=== PATIENT | male | born 1975 | race Caucasian/White ===

== ENCOUNTER 2024-07-21 11:59 | Outpatient (OUT) | payer BC, SELFPAY ==
--- NOTE | 2024-07-21 12:08 | XR_ITS ---
The [address] [address] Patient Name: NAVNEET CUNHA MRN: [id number] date: 1975 Sex: M Assigned Patient Location: [facility] Current Patient Location: Accession/Order Number: [id number] Exam Date: 07/21/2024 12:18 Report Date: 07/23/2024 04:30 At the request of: SHIRIN ESPINOZA Procedure: XR lumbar spine 6V w bending EXAMINATION: XR lumbar spine 6V w bending HISTORY: Low Back Pain COMPARISON: No relevant comparison available. FINDINGS: BONES: Mild right convex curvature lumbar spine. Minimal anterior wedging of T11 and T12 vertebral bodies. Height and alignment of the lumbar vertebral bodies. Moderate degenerative facet arthropathy L3-L4 through L5-S1. DISC SPACES: Moderate-marked narrowing L5-S1. PARASPINOUS: Negative. No paraspinous abnormality is seen. OTHER: Negative. XR/XR lumbar spine 6V w bending IMPRESSION: 1. L5-S1 moderate-marked degenerative disc disease and multilevel moderate degenerative facet arthropathy. 2. Degenerative endplate changes versus remote mild compression fractures of T11 and T12. Electronically authenticated by: ELVIN MILIAN Date: 07/23/2024 04:30
== END 2024-07-21 12:00 | disposition home or self-care (01) ==
LOC: RAD 12:02
PROVIDERS: PCP Internal Medicine; Visit Provider Internal Medicine
DX: M54.50 Low back pain, unspecified (principal); M51.36 Other intervertebral disc degeneration, lumbar region
CPT/HCPCS: 72114

== ENCOUNTER 2024-07-28 12:50 | Outpatient (RCR) | payer BC, SELFPAY | END 2024-09-16 09:31 | disposition home or self-care (01) | LOC: PT 12:50 | PROVIDERS: PCP Internal Medicine; Visit Provider Internal Medicine | DX: M54.50 Low back pain, unspecified (principal) | CPT/HCPCS: 97010; 97012; 97014; 97110; 97112; 97140; 97162; 97164 ==

== ENCOUNTER 2025-01-11 10:38 | Emergency (ER) | payer BC, SELFPAY ==
[2025-01-11 10:41] VITALS: BP 146/97; PULSE 68; TEMP 37.1; O2SAT 99; BMI 42.2
--- NOTE | 2025-01-11 11:01 | ED_ITS ---
HPI HPI - General Adult General Chief complaint: Back Pain/Injury Stated complaint: WEAKNESS Time Seen by Provider: 01/11/25 10:59 Source: patient Mode of arrival: ambulance Limitations: no limitations History of Present Illness HPI narrative: Patient is a 49-year-old male who is presenting to the ER today by EMS secondary to left flank and left lower back pain. Patient is coming from work. Patient is also been having nausea, vomiting, diarrhea since Friday. Patient does not believe that he has urinated since Friday. If patient is urinating is not being attention or going a little bit. Patient has history of kidney stones, he is passed for kidney stones in the past. Patient last kidney stone was passed approximately 8 years ago. Patient has not been urinating much. Patient had nausea vomiting diarrhea. Patient was at work today. Patient has no anterior abdominal pain. No chest pain or shortness of breath. No headache. Patient is clammy not diaphoretic. All systems are negative except as noted/marked. All systems reviewed and otherwise negative. Nurses note and vital signs reviewed and patient is not hypoxic. General: The patient appears well and in no apparent distress. Patient is resting comfortably on cart. Patient is not toxic, lethargic, or listless Skin: Warm, clammy, not diaphoretic, no pallor noted. There is no rash noted. No petechiae, purpura. Head: Normocephalic, atraumatic Eye: Normal conjunctiva, no drainage, EOMI. PERRL Ears, Nose, Mouth, and Throat: oral mucosa is moist. Nares patent. Mouth without vesicles. Cardiovascular: Regular Rate and Rhythm, no murmur, gallop, rub Respiratory: Patient is in no distress, no accessory muscle use, lungs are clear to auscultation, no wheezing, rales or rhonchi Back: Patient has moderate tenderness palpation to left CVA, moderate tenderness palpation to left flank, no tenderness to palpation to the right flank, mild tenderness to palpation to left lower quadrant, otherwise the rest of his back is non-tender, no CVA tenderness on the right to percussion. No CT LS midline pain GI: Obese, no midepigastric tenderness palpation. No peritoneal signs. Mild left lower quadrant tenderness palpation. Otherwise No tenderness to palpation, no masses appreciated. No rebound, guarding, or rigidity noted. No distention. No rigidity, no tympany. : Patient is circumcised, no tenderness to palpation to bilateral testicles. No signs of hernia. Musculoskeletal: Patient has full range of motion of all of the extremities, no motor, sensory, or focal neurological deficits Neurological: A&O x4, normal speech Psychiatric: Cooperative Related Data Previous Rx's ?Medication ?Instructions ?Recorded hydrocodone 5 mg-acetaminophen 325 1 tab PO Q4H PRN pain #10 tabs 01/11/25 mg tablet ketorolac 10 mg tablet 10 mg PO Q8H PRN pain 1 day #10 01/11/25 tabs ondansetron 4 mg disintegrating 4 mg PO Q4H PRN nausea and 01/11/25 tablet vomiting 3 days #6 tabs tamsulosin 0.4 mg capsule (Flomax) 0.4 mg PO DAILY 7 days #7 caps 01/11/25 Allergies Allergy/AdvReac Type Severity Reaction Status Date / Time No Known Drug Allergies Allergy Verified 01/11/25 10:44 Opioid HPI Opioid Management Most Recent Opioid Data: Last Pain Scale 6 01/11/25 14:26 01/11/25 Last MAR Pain Assessment 01/11/25 14:26 PFSH PFSH Social History Little interest or pleasure in doing things: not at all Feeling down, depressed, or hopeless: not at all Exam Constitutional Vital Signs, click to edit/add: Last Vital Signs Temp 98.7 F 01/11/25 10:41 Pulse 68 01/11/25 15:58 Resp 20 01/11/25 15:58 BP 160/100 H 01/11/25 15:58 Pulse Ox 98 01/11/25 15:58 O2 Del Method Room Air 01/11/25 15:58 Course Vital Signs Vital signs: Vital Signs Temperature 98.7 F 01/11/25 10:41 Pulse Rate 68 01/11/25 10:41 Respiratory Rate 20 01/11/25 10:41 Blood Pressure 146/97 H 01/11/25 10:41 Pulse Oximetry 99 01/11/25 10:41 Oxygen Delivery Method Room Air 01/11/25 10:41 Temperature 98.7 F 01/11/25 10:41 Pulse Rate 68 01/11/25 15:58 Respiratory Rate 20 01/11/25 15:58 Blood Pressure 160/100 H 01/11/25 15:58 Pulse Oximetry 98 01/11/25 15:58 Oxygen Delivery Method Room Air 01/11/25 15:58 Medical Decision Making MDM Narrative Medical decision making narrative: Patient presented from work by EMS. Patient has a history of kidney stones, last kidney stone he passed was approximately [address] shows 1 mm stone to the distal left ureter, mild hydronephrosis and hydroureter. Patient was given 4 mg of Zofran and Toradol by EMS. 1400 Lab work shows no significant findings, still waiting for urine sample. 1510 patient had Vasquez catheter placed because has been given 2 L of IV fluid and is unable to produce urine. Initial bladder scan showed around 150 cc of urine. Patient is not having significant amount of urine or bladder pressure. Patient had a Vasquez catheter placed, we obtained approximately 200 cc of fluid. Vasquez catheter was removed. There was a concern patient may be having urinary retention, he is not. BUN is slightly elevated at 19. Urine was sent. CK was added. Patient has a 1 mm stone that is at the distal left ureter. Patient has been having intermittent pain and nausea in the ER, has been though several times for nausea and pain. Patient was given a copy of his CT report. Patient does not have a urologist. 1600 patient blood pressure was elevated at discharge. Education was done at bedside on elevated blood pressure, risks of cardiovascular disease if patient continues to have blood pressure greater than 130/80. Also discussing patient's noncompliant elevated blood sugars and not taking metformin. Patient does see Dr. Quinonez. Patient has no significant headache, chest pain, shortness of breath. Education and creating a blood pressure log was discussed at bedside as well, taking his blood pressure twice a day for the next 1 to 2 weeks, recording the blood pressure and times, and presenting them to Dr. Quinonez for further testing and evaluation. Patient understands this, no question at discharge. I took patient's Vasquez catheter out. I removed 10 cc of fluid, and I pulled out the Vasquez catheter with no complications. No bleeding occurred. Patient tolerated procedure well without difficulty. Patient was given 2 L of IV fluid for resuscitation. Vasquez catheter was placed. Multiple bedside visits made to reassess his pain, multiple different doses of nausea pain medication given. 10-minute discussion on medical compliance, taking diabetic medication, paying attention to his blood pressure, and education on cardiovascular risk and disease if he continues noncompliance, especially noncompliance with diabetes. Mother was a witness to these conversations as well. Critical care time 31 minutes exclusive from separate billable procedures that were performed. The following was considered in the determination of critical care but not limited to the level of medical decision making, intensive cardiac and/or respiratory monitoring, frequent vital sign monitoring, evaluation of laboratory studies, evaluation of radiographic studies, oxygen monitoring, and constant monitoring and speaking to family at bedside Lab Data Labs: Lab Results 01/11/25 01/11/25 Range/Units 11:08 15:10 WBC 8.3 (4.0-11.0) 10^3/uL RBC 4.99 (4.70-6.10) 10^6/uL Hgb 15.1 (14.0-18.0) g/dL Hct 43.7 (42.0-54.0) % MCV 87.6 (80.0-94.0) fL MCH 30.3 (25.9-34.0) pg MCHC 34.6 (29.9-35.2) g/dL RDW 12.3 (11.0-15.0) % Plt Count 189 (150-450) 10^3/uL MPV 10.3 (9.5-13.5) fL Neut % (Auto) 73.6 (43.0-75.0) % Lymph % (Auto) 17.3 L (20.5-60.0) % [place] % (Auto) 7.3 (1.7-12.0) % Eos % (Auto) 1.0 (0.9-7.0) % Baso % (Auto) 0.4 (0.2-2.0) % Neut # (Auto) 6.1 (1.4-6.5) 10^3/uL Lymph # (Auto) 1.4 (1.2-3.8) 10^3/uL [place] # (Auto) 0.6 (0.3-0.8) 10^3/uL Eos # (Auto) 0.1 (0.0-0.7) 10^3/uL Baso # (Auto) 0.0 (0.0-0.1) 10^3/uL Abs Immat Gran (auto) 0.03 (0.00-0.03) 10^3/uL Imm/Tot Granulo (auto) 0.4 (0.0-0.5) % Sodium 138 (136-145) mmol/L Potassium 4.3 (3.5-5.1) mmol/L Chloride 104 (98-107) mmol/L Carbon Dioxide 26.1 (21.0-32.0) mmol/L Anion Gap 12.2 BUN 19.0 H (7.0-18.0) mg/dL Creatinine 1.17 (0.70-1.30) mg/dL Est GFR ( Amer) >60 (>=60 mL/min/1.73m^2) Est GFR (Non-Af Amer) >60 (>=60 mL/min/1.73m^2) BUN/Creatinine Ratio 16.2 Glucose 245 H (74-106) mg/dL Calcium 9.0 (8.5-10.1) mg/dL Total Bilirubin 0.7 (0.2-1.0) mg/dL AST 23 (15-37) U/L ALT 48 (16-63) U/L Alkaline Phosphatase 103 (46-116) U/L Total Creatine Kinase 148 (39-308) U/L Total Protein 6.5 (6.4-8.2) g/dL Albumin 3.8 (3.4-5.0) g/dL Globulin 2.7 g/dL Albumin/Globulin Ratio 1.4 Lipase 24.0 (16.0-77.0) U/L Urine Color Yellow (YELLOW) Urine Clarity Clear (CLEAR) Urine pH 5.0 (5.0-9.0) Ur Specific [place] >=1.030 A (1.005-1.025) Urine Protein Trace (NEG/TRACE) mg/dL Urine Glucose (UA) 500 A (NEGATIVE) mg/dL Urine Ketones Trace A (NEGATIVE) mg/dL Urine Occult Blood Moderate A (NEGATIVE) Urine Nitrite Negative (NEGATIVE) Urine Bilirubin Negative (NEGATIVE) Urine Urobilinogen 1.0 (0.2-1.0) EU/dL Ur Leukocyte Esterase Negative (NEGATIVE) Urine RBC 5-10 A (0-2) #/HPF Urine WBC 0-2 A (NONE SEEN) #/HPF Ur Squamous Epith Cells Few A (NONE/RARE) #/LPF Urine Crystals None seen (None Seen) #/HPF Urine Bacteria Trace A (NONE SEEN) #/HPF Urine Casts None seen (NONE SEEN) #/LPF Urine Mucus Moderate A (NONE SEEN) Ur Culture Indicated? No Discharge Plan Discharge Stand Alone Forms: Work/School Release Chief Complaint: Back Pain/Injury Clinical Impression: Kidney stone on left side, Medical non-compliance, Diabetes Patient Disposition: Home, Self-Care Time of Disposition Decision: 15:22 Condition: Fair Prescriptions / Home Meds: New hydrocodone-acetaminophen 5-325 mg tablet 1 tab PO Q4H PRN (Reason: pain) Qty: 10 0RF ketorolac 10 mg tablet 10 mg PO Q8H PRN (Reason: pain) 1 Days Qty: 10 0RF tamsulosin [Flomax] 0.4 mg capsule 0.4 mg PO DAILY 7 Days Qty: 7 0RF ondansetron 4 mg tablet,disintegrating 4 mg PO Q4H PRN (Reason: nausea and vomiting) 3 Days Qty: 6 0RF Print Language: Colombian Instructions: Kidney Stones (ED), Renal Colic (ED), How to Strain Your Urine (ED), Hydronephrosis (ED), Type 2 Diabetes in the Older Adult (ED) Additional Instructions: Go to the pharmacy and pick pack worker your metformin prescription and start taking metformin as prescribed. Follow-up with your PCP to check your hemoglobin A1c's as you should, and continue to follow compliance with diabetes or you will have adverse complications in the future as discussed. Increase fluids, 0.5 - 1 gallon of water a day to help flush fluids and help with hydration. Also Gatorade or Powerade could help as well. Use medication as needed to help with pain. Use the urine strainer every time that you urinate. Follow-up with urology, Dr. Hall Follow-up with Dr. Quinonez as needed as well. Nausea medication has been prescribed. Use as needed. Take Flomax daily After 2 L of IV fluid, you only had approximately 1 Pop (200ml) can Of urine in your bladder, continue to hydrate and increase fluids. Return back to the ER if you are having intractable pain, nausea vomiting, or any other acute complaints. Referrals: Johnny Quinonez DO [Primary Care Provider] - 1 week Jones Hall MD [Physician] - 1 week Discharge Date/Time: 01/11/25 16:00
--- OUTSIDE RECORDS SUMMARY | 2025-01-11 11:08 | XMS_ITS | CCD ---
Author Organization [facility] Care Team Providers Care Tube Washer Name Role Phone Rezaee, Vonnie Unavailable Unavailable Johnny Quinonez Unavailable Unavailable Rezaee, Vonnie P Unavailable Unavailable Rezaee, Vonnie Unavailable Unavailable Freddy Encarnacion Unavailable DO Johnny Quinonez Primary Care Provider [phone] MD Freddy Encarnacion Attending Provider FREDDY ENCARNACION Admitting Unavailable FREDDY ENCARNACION Attending Unavailable CRISTIANO, DR CARPIO Primary Care Unavailable SALLY MEEKS Admitting Unavailable SALLY MEEKS Attending Unavailable CRISTIANO, DR CARPIO Primary Care Unavailable PIERMONT, DR RADHA Cardona Consulting Unavailable SALLY MEEKS Consulting Unavailable Freddy Encarnacion Attending Johnny Serna Primary Care Unavailable Freddy Enacrnacion Admitting Unavailable Freddy Encarnacion Attending Unavailable Johnny Quinonez Primary Care Unavailable Freddy Encarnacion Admitting Unavailable MERRICK DIAL Attending Unavailable Johnny Quinonez MD Primary Care Provider Trung Ellington DO Unavailable [phone] Allergies Allergy Classification Reported Allergen(s) Allergy Type Date of Onset Reaction(s) Facility (4 sources) Coconut extract; Translations: [coconut] Drug Allergy 9 Unknown Reaction [facility] (4 sources) Grass pollen; Translations: [grass pollen] Propensity to adverse reactions 9 Unknown Reaction [facility] (4 sources) Loratadine; Translations: [loratadine] Drug Allergy 9 Unknown Reaction [facility] (4 sources) Ragweed pollen; Translations: [ragweed pollen] Propensity to adverse reactions 9 Unknown Reaction [facility] Medications Current Medications Medication Drug Class(es) Dates Sig (Normalized) Sig (Original) etodolac 500 mg oral tablet (2 sources) Nonsteroidal Anti-inflammatory Drug Start: 07-21-2024 take 500 mg by mouth twice daily Etodolac Active 500 MG PO Twice daily 30 July 21, 2024 12:00am insulin detemir 100 unt/ml injectable solution (6 sources) Insulin Analog Levemir 100 UNIT/ML as directed Subcutaneous Active lisinopril 20 mg oral tablet (7 sources) Angiotensin Converting Enzyme Inhibitor Start: 07-21-2024 lisinopril 20 MG tablet Daily 07/21/2024 Active Start: 04-22-2018 End: 03-11-2019 take 10 mg by mouth once daily Lisinopril Discontinued 10 MG PO Daily April 22, 2018 12:00am March 11, 2019 8:21am metFORMIN hydrochloride 850 mg oral tablet (20 sources) Biguanide Start: 07-21-2024 take 850 mg by mouth once daily Metformin Active 850 MG PO Daily July 21, 2024 12:00am Start: 03-11-2019 End: 07-21-2024 take 500 mg by mouth twice daily Metformin Discontinued 500 MG PO Twice daily March 11, 2019 12:00am July 21, 2024 10:47am metFORMIN (Gluco phage) 1000 MG tablet 1 (one) time each day at the same time Active take 1 tablet by sarah th once daily metFORMIN HCl 500 MG 1 tablet with a meal Orally Once a day for 30 day(s) Active 0.25 mg, 0.5 mg dose 1.5 ml semaglutide 1.34 mg/ml pen injector (7 sources) Ozempic (0.25 or 0.5 MG/DOSE) 2 MG/1.5ML as directed Subcutaneous Active Ozempic (0.25 or 0.5 MG/DOSE) 2 MG/1.5ML Subcutaneous Solution Pen-injector Refills: 0 DO Active tiZANidine 4 mg oral tablet (8 sources) Central alpha-2 Adrenergic Agonist Start: 07-21-2024 tiZANidine (Zanaflex ) 4 MG tablet Daily at bedtime 07/21/2024 Active Start: 04-22-2018 End: 03-11-2019 take 6 mg by mouth three times daily Tizanidine Discontinued 6 MG PO Three times daily April 22, 2018 12:00am March 11, 2019 8:22am Start: 02-24-2018 tiZANidine HCl - 4 MG Oral Tablet Quantity: 60 Refills: 0 Start : 24-Feb-2018 Active Completed/Discontinued Medications Medication Drug Class(es) Dates Sig (Normalized) Sig (Original) [id number] 200 actuat albuterol 0.09 mg/actuat metered dose inhaler (2 sources) beta2-Adrenergic Agonist Start: 07-28-2023 End: 09-27-2024 take 2 puff(s) by inhalation every four hours for wheezing albuterol HFA (ProAir HFA) 90 mcg/act inhaler Indications: Acute non-recurrent maxillary sinusitis Inhale 2 puffs every 4 (four) hours if needed for shortness of breath or wheezing. 8.5 g 07/28/2023 09/27/2024 Discontinued amLODIPine 10 mg oral tablet (9 sources) Dihydropyridine Calcium Channel Scott Start: 03-11-2019 End: 07-21-2024 take 10 mg by mouth once daily Amlodipine Discontinued 10 MG PO Daily March 11, 2019 12:00am July 21, 2024 10:46am aspirin 81 mg chewable tablet (9 sources) Platelet Aggregation Inhibitor, Nonsteroidal Anti-inflammatory Drug Start: 03-11-2019 End: 07-21-2024 take 81 mg by mouth once daily Aspirin Discontinued 81 MG PO Daily March 11, 2019 12:00am July 21, 2024 10:46am atorvastatin 10 mg oral tablet (9 sources) HMG-CoA Reductase Inhibitor Start: 03-11-2019 End: 07-21-2024 take 10 mg by mouth once daily Atorvastatin Discontinued 10 MG PO Daily March 11, 2019 12:00am July 21, 2024 10:46am cyclobenzaprine hydrochloride 5 mg oral tablet (1 source) Muscle Relaxant Start: 01-24-2020 take 1 tablet by mouth three times daily Cyclobenzaprine HCl - 5 MG Oral Tablet TAKE 1 TABLET 3 TIMES DAILY. Quantity: 9 Refills: 0 Vonnie Hampton MD Start : 24-Jan-2020 Active esomeprazole 20 mg / naproxen 500 mg delayed release oral tablet (1 source) Proton Pump Inhibitor, Nonsteroidal Anti-inflammatory Drug Start: 11-05-2017 Vimovo 500-20 MG Oral Tablet Delayed Release Quantity: 60 Refills: 0 Start : 05-Nov-2017 Active gabapentin 800 mg oral tablet (10 sources) Anti-epileptic Agent Start: 04-22-2018 End: 03-11-2019 take 600 mg by mouth twice daily Gabapentin Discontinued 600 MG PO Twice daily April 22, 2018 12:00am March 11, 2019 8:21am Start: 06-19-2017 Horizant 600 M G as directed Orally Start taking 1 tablet in the evening for three days then increase to taking twice a day for 30 days G89.29 Chronic Pain Jun, Not-Taking hydroCHLOROthiazide 12.5 mg / lisinopril 10 mg oral tablet (10 sources) Thiazide Diuretic, Angiotensin Converting Enzyme Inhibitor Start: 03-11-2019 End: 07-21-2024 take 1 tablet by mouth once daily Lisinopril-Hydrochlorothiazide Discontinued 1 TAB PO Daily March 11, 2019 12:00am July 21, 2024 10:47am Start: 06-03-2018 Lisinopril-hyd roCHLOROthiazide 20-25 MG Oral Tablet Quantity: 30 Refills: 0 Start : 03-Jun-2018 Active ibuprofen 800 mg oral tablet (2 sources) Nonsteroidal Anti-inflammatory Drug Start: 09-27-2024 End: 10-04-2024 take 1 tablet by mouth every eight hours for pain ibuprofen 800 MG tablet Indications: Strain of neck muscle, initial encounter Take 1 tablet (800 mg) by mouth every 8 (eight) hours if needed for mild pain for up to 7 days 21 tablet 09/27/2024 10/04/2024 Susannah BURKS (1 source) Insulin Analog Touranjit STACYN Refills: 0 DO Active OLANZapine 5 mg oral tablet (3 sources) Atypical Antipsychotic Start: 04-22-2018 End: 03-11-2019 take 1 tablet by mouth once daily Olanzapine (Zyprexa) 5 mg Tablet Discontinued 5 MG PO Daily April 22, 2018 12:00am March 11, 2019 8:22am omeprazole 40 mg delayed release oral capsule (1 source) Proton Pump Inhibitor Start: 04-13-2018 Omeprazole 40 MG Oral Capsule Delayed Release Quantity: 30 Refills: 0 Start : 13-Apr-2018 Active SZSTANDARD1-Topical Cream Baclofen 2%, Cyclobenzaprine HCL 2%, Diclofenac Na 3%, Gabapentin 6%, Lidocaine HCL 2% Cream (5 sources) Start: 03-03-2019 SUJATHASTANDARD1-Topical Cream Baclofen 2%, Cyclobenzaprine HCL 2%, Diclofenac Na 3%, Gabapentin 6%, Lidocaine HCL 2% Cream NEEDED TOPICALLY APPLY 1-2 GRAMS FOR 2-3 MINUTES EVERY 6-8 HOURS for 30 days Feb, Not-Taking traMADol hydrochloride 50 mg oral tablet (1 source) Opioid Agonist Start: 01-24-2020 take 2 tablets by mouth every six hours traMADol HCl - 50 MG Oral Tablet TAKE 2 TABLET Every 6 hours PRN Quantity: 56 Refills: 0 Vonnie Hampton MD Start : 24-Jan-2020 Active triamcinolone acetonide 40 mg/ml injectable suspension (8 sources) Corticosteroid Start: 08-05-2022 Kenalog-40 Jul, 40 mg Problems Active Problems Problem Classification Problem Date Documented Date Episodic/Chronic Diabetes mellitus with complications (9 sources) Type 2 diabetes mellitus; Translations: [Type 2 diabetes mellitus with hyperglycemia] 07-19-2024 Chronic Disorders of lipid metabolism (1 source) Hypercholesterolemia; Translations: [Pure hypercholesterolemia, unspecified] Chronic Essential hypertension (8 sources) Essential hypertension; Translations: [Essential (primary) hypertension] 07-19-2024 Chronic Headache; including migraine (6 sources) Migraine; Translations: [Migraine, unspecified, not intractable, without status migrainosus] Chronic Other aftercare (1 source) Long-term current use of insulin; Translations: [detention (current) use of insulin] Episodic Other circulatory disease (2 sources) H/O: hypertension; Translations: [History of hypertension] Episodic Other connective tissue disease (3 sources) Myalgia, other site Onset: 07-08-2022 Resolved: 07-08-2022 Episodic Other lower respiratory disease (2 sources) H/O: respiratory disease; Translations: [History of sleep apnea] Episodic Other nervous system disorders (6 sources) Chronic pain; Translations: [Other chronic pain] Chronic Other nervous system disorders (5 sources) Other chronic pain Onset: 06-10-2022 Resolved: 07-08-2022 Chronic Other nervous system disorders (1 source) Postoperative pain ; Translations: [Post-op pain] Episodic Other nutritional; endocrine; and metabolic disorders (6 sources) Body mass index 40+ - severely obese; Translations: [Body mass index (BMI) 40.0-44.9, adult] Chronic Other nutritional; endocrine; and metabolic disorders (2 sources) H/O: thyroid disorder; Translations: [History of thyroid disorder] Episodic Other skin disorders (2 sources) Localized swelling, mass and lump, neck; Translations: [Localized swelling, mass and lump, neck] Episodic Other upper respiratory disease (2 sources) Abnormal voice; Translations: [Voice disturbance] Episodic Residual codes; unclassified (6 sources) Obstructive sleep apnea syndrome; Translations: [Obstructive sleep apnea (adult) (pediatric)] Chronic Residual codes; unclassified (6 sources) History of surgical procedure on cervical spine; Translations: [Other specified postprocedural states] Episodic Spondylosis; intervertebral disc disorders; other back problems (20 sources) Degeneration of cervical intervertebral disc; Translations: [Other cervical disc degeneration, unspecified cervical region] Onset: 06-10-2022 Resolved: 07-08-2022 Chronic Spondylosis; intervertebral disc disorders; other back problems (16 sources) Cervico-occipital neuralgia; Translations: [Occipital neuralgia] Onset: 06-20-2022 Episodic Sprains and strains (2 sources) Strain of neck muscle; Translations: [Strain of muscle, fascia and tendon at neck level, initial encounter] 09-27-2024 Episodic Thyroid disorders (10 sources) Non-toxic multinodular goiter; Translations: [Mass of thyroid gland] Chronic Transient cerebral ischemia (6 sources) Transient cerebral ischemia; Translations: [Transient cerebral ischemic attack, unspecified] Chronic Past or Other Problems Problem Classification Problem Date Documented Da te Episodic/Chronic Other connective tissue disease (4 sources) Pain in left foot; Translations: [PAIN IN LEFT FOOT] Onset: 11-28-2021 Episodic Other connective tissue disease (1 source) Pain in right foot; Translations: [PAIN IN RIGHT FOOT] Onset: 12-03-2021 Episodic NEGATED: Highlighted row has not occurred!Residual codes; unclassified (8 sources) Disease Episodic Results Test Name Value Interpretation Reference Range Facility MR cervical spine wo/w conon 09-09-2022 MR cervical spine wo/w con [facility] Main [place] [id number] MRI Report Signed Patient: Navneet Rivera MR#: [id number] : 1975 Acct:[id number] Age/Sex: 47 / M ADM Date: 09/09/22 Loc: MR Room: Type: [facility] Attending Dr: Freddy Encarnacion MD Copies to: Freddy Encarnacion MD Ordering Provider: Freddy Encarnacion MD Date of Service: 09/09/22 MR/MR cervical spine wo/w con: INCREASED PAIN MR cervical spine wo/w con 09/09/2022 7:15 PM SIGNS AND SYMPTOMS: Neck pain, worsening headaches, history of cervical fusion with bilateral arm numbness PROTOCOL: Multiplanar multisequence MR images of the cervical spine were obtained with and without IV contrast CONTRAST: 20 mL of intravenous ProHance COMPARISON: None. FINDINGS: There is straightening of the normal cervical lordosis. There is anterior fusion at C5- C6. There is bridging anterior ossified formation at C3, C4, and C7. There is preservation of vertebral body heights. There is moderate disc height loss at C7-T1. There is mild disc height loss at C3-C4. The cord is normal in signal. No epidural or paraspinous fluid collection is appreciated. The visualized paraspinous soft tissues are within normal limits. The prevertebral soft tissues are within normal limits. There is no abnormal postcontrast enhancement. At C2-C3: Facet degenerative changes are present, left greater than right contributing to mild bilateral neural foraminal narrowing. At C3-C4: There is a broad-based disc bulge with facet and uncovertebral joint degenerative change contributing to moderate to severe bilateral neural foraminal narrowing right greater than left. There is also moderate spinal canal narrowing. At C4-C5: Facet and into joint degenerative change contributes to moderate bilateral neural foraminal narrowing left greater than right. There is mild spinal canal narrowing. At C5-C6: There is uncovertebral joint spurring and facet hypertrophy with severe left and moderate right neural foraminal narrowing. This mild spinal canal stenosis. At C6-C7: Facet and into degenerative change. Mild bilateral neural foraminal narrowing with mild spinal canal narrowing. At C7-T1: There is a normal disc, central canal, and neural foramen. MR/MR cervical spine wo/w con IMPRESSION: Anterior fusion hardware is noted at C5-C6. At C3-C4: There is a broad-based disc bulge with facet and uncovertebral joint degenerative change contributing to moderate to severe bilateral neural foraminal narrowing right greater than left. There is also moderate spinal canal narrowing. At C4-C5: Facet and into joint degenerative change contributes to moderate bilateral neural foraminal narrowing left greater than right. There is mild spinal canal narrowing. At C5-C6: There is uncovertebral joint spurring and facet hypertrophy with severe left and moderate right neural foraminal narrowing. This mild spinal canal stenosis. There is no abnormal postcontrast enhancement. Impression dictated by: Houston Glover M.D.09/09/2022 8:47 PM Dictation Location: [place] [address] Transcribed By: [facility] 09/09/222046 Dictated By: Houston Glover II, MD 09/09/222038 Signed By: 09/09/222046 Normal [facility] XR thoracic spine 3V*on 06-10 XR thoracic spine 3V* [facility] [place] [address] XRay Report Signed Patient: Navneet Rivera MR#: [id number] : 1975 Acct:[id number] Age/Sex: 46 / M ADM Date: 06/21/22 Loc: XD Room: Type: [facility] Attending Dr: Freddy Encarnacion MD Copies to: Freddy Encarnacion MD Ordering Provider: Freddy Encarnacion MD Date of Service: 06/21/22 XR/XR cervical spine 5V*: Cervical spondylosis ([id number]) XR/XR thoracic spine 3V*: Thoracic spondylosis XR cervical spine 5V*, XR thoracic spine 3V* 06/21/2022 2:28 PM SIGNS AND SYMPTOMS: Pinched nerve in right shoulder and upper back for 2 months PROTOCOLS: Frontal, lateral, and oblique radiographs of the cervical spine. Frontal and lateral radiographs of the thoracic spine. COMPARISON: Cervical spine radiographs 08/25/2017 and thoracic spine radiographs 06/30/2017 FINDINGS: Cervical spine: The bones are in anatomic alignment. Anterior fusion hardware is noted at C5-C6. Posterior fusion hardware is noted at C6-C7. Hardware is unchanged. Bridging anterior osteophyte formation is noted at C4-C5 and C5-C6. This is worse when compared to the prior exam. Facet and negative joint degenerative changes contribute to neural foraminal narrowing bilaterally. The prevertebral soft tissues are within normal limits. There is preservation of the vertebral body heights and intervertebral disc spaces. There is no fracture or destructive lesion. Surgical clips are noted at the base of the neck on the right. Thoracic spine: The bones are in anatomic alignment with preservation of vertebral body heights. There is mild to moderate disc height loss throughout the thoracic spine with bridging anterior osteophyte formation similar to the prior exam. No evidence of fracture or bony destructive lesion. XR/XR cervical spine 5V* IMPRESSION: Cervical spine: Anterior fusion hardware is noted at C5-C6. Posterior fusion hardware is noted at C6-C7. Hardware is unchanged. Bridging anterior osteophyte formation is noted at C4-C5 and C5-C6. This is worse when compared to the prior exam. No fracture or subluxation. Thoracic spine: No fracture or subluxation. Similar degenerative changes are noted throughout the thoracic spine showing no significant interval progression. Impression dictated by: Houston Glover M.D.06/21/2022 3:00 PM Dictation Location: [place] [address] Transcribed By: [facility] 06/21/22 1500 Dictated By: Houston Glover II, MD 06/21/22 1456 Signed By: 06/21/22 1500 [facility] XR FOOT BETO MIN 3 VIEWSon XR FOOT BETO MIN 3 VIEWS EXAMINATION: XR FOOT BETO MIN 3 VIEWS HISTORY: Pain in both feet COMPARISON: No relevant comparison available. FINDINGS: RIGHT FINDINGS: BONES: No acute fracture or dislocation. Moderate degenerative changes with joint space narrowing marginal osteophyte formation and enthesopathic spurring of the calcaneus. Persistent flexion of the toes limits their exam. SOFT TISSUES: Negative. No visible soft tissue swelling. OTHER: Negative. LEFT FINDINGS: BONES: No acute fracture or dislocation. Moderate degenerative changes with joint space narrowing marginal osteophyte formation and enthesopathic spurring of the calcaneus. Persistent flexion of the toes limits their exam. SOFT TISSUES: Negative. No visible soft tissue swelling. OTHER: Negative. IMPRESSION: RIGHT CONCLUSION: Moderate degenerative changes LEFT CONCLUSION: Moderate degenerative changes Electronically authenticated by: RADHA ZARCO Date: 2021-11-28 11:15 Normal [facility] TSHon 04-24-2020 TSH Qn 5.03 m[IU]/L High 0.44 - 3.98 [facility] [place], operated [facility] Comment on above: Result Comment: TSH testing is performed using different testing methodology at [facility] than at [facility]. Direct result comparisons should only be made within the same method. Performed By: #### B MP #### [facility] [address] [place] [address] TSH - Thyroid Stimulating Ho rmone, Serumon 04-24-2020 TSH Qn 5.03 {mIU/L} above high threshold See Below MG-Otolaryngo logy-Vanessa Work Phone: Comment on above: Reference Range: 0.4 4 - 3.98 TSH testing is performed using different testing methodology at [facility] than at [facility]. Direct result comparisons should only be made within the same method. GLUCOSE-POCTon 01-17-2020 Glucose [Mass/Vol] 210 mg/dL High 74 - 99 [facility] Comment on above: Performed By: #### G FRANK #### [facility] [address] [place] [address] Glucose [Mass/Vol] 152 mg/dL High 74 - 99 [facility] Comment on above: Performed By: #### G FRANK #### [facility] [address] [place] [address] History and Physical - Surgi slime Update < 30 dayson 01-17-2020 History and Physical - Surgical Update < 30 days History & Physical Reviewed: I have reviewed the History and Physical dated: 31-Dec-2019 History and Physical reviewed and relevant findings noted. Patient examined to review pertinent physical findings.: No significant changes Home Medications Reviewed: no changes noted Allergies Reviewed: no changes noted This patient has been seen and discussed with the attending physician responsible for performing the procedure: yes Signatures/Attestation/C ertification: Note Completion: I am a: Resident/Fellow Attending AttestationI saw and evaluated the patient. I personally obtained the parsons and critical portions of the history and physical exam or was physically present for parsons and critical portions performed by the resident/fellow. I reviewed the resident/fellows documentation and discussed the patient with the resident/fellow. I agree with the resident/fellows medical decision making as documented in the note. I personally evaluated the patient [id number] Attending Provider Inpatient Certification StatementObservation patient/other outpatient visits Electronic Signatures: Bret Agarwal (Resident)) (Signed 16-Jan-2020 19:55) Authored: History & Physical Reviewed, Signatures/Attestation/C ertification Vonnie Hampton) (Signed 21-Jan-2020 07:24) Authored: Signatures/Attestation/C ertification Co-Signer: History & Physical Reviewed, Signatures/Attestation/C ertification Last Updated: 21-Jan-2020 07:24 by Vonnie Hampton) Normal [facility] Patient Profile - Preop v2on 01-17-2020 Patient Profile - Preop v2 Profile: Initial Info: How to be AddressedBradley Spoken Language PreferredEnglish Are you currently using the Personal Electronic Health Record or DrimmiUHCAREno Are you interested in learning more about [facility] for the management of your healthnot at this time Stated Reason for Admissionremove goiter on right neck Primary Contact Name and Numbersee face sheet Patient BelongingsPatients clothing/belongings in patient belonging room Medications Brought to Hospitalno General Health: Weight in kg148.6 kilogram(s) Weight in fdw947.6 pound(s) Weight Methodactual (measured) Scale Typestanding Height in cm185 centimeter(s) Height Methodstated BMI (kg/m2)43.418 square meter Patient or Family Member Reaction to Anesthesiapatient reaction Patient Reaction to Anesthesiaunsure of the reaction Blood Avoidance/Restrictionsno ne Health Mgmt: Symptoms/Conditions Managed at Homesee significant events Barriers to Managing Healthnone Relationship/Environ: Resource/Environmental Concernsnone Lives Withdependent child(lucio) Substance: Current or Former Substance Use never: Cigarette/Tobacco, e-Cigarette/Vaping, Alcohol, Street Drugs Risk Screens: Advance Directive/DNRno During the past month, have you often been bothered by feeling down, depressed or hopelessno During the past month, have you often had little interest or pleasure in doing thingsno Have you had any thoughts of harming yourselfno Have you had any thoughts of harming anyone elseno Are you or have you been threatened or abused physically,emotionally or sexually abused by anyoneno Do you feel UNSAFE going back to the place you are livingno Patient is Able to be Assessed for Learningyes Factors Influencing Readiness to Learnacuteness of illness Factors that Impact Ability to Learnnone Devices/Methods Used to Communicatenone Learning Preferencesverbal instruction Cultural Considerationsnone Developmental Considerationsnone Amish Considerationsnone Other learner availableno [place] RiskPatient location auto qualifies him/her for HIGH RISK. Are there any cultural, spiritual, evangelical practices/values/needs that are important for us to knowno Pain Scalenumerical 0-10 Pain Scale Educationteaching provided Current Pain Level0 = None Acceptable Pain Level0 = None Chronic Painno Information Review: Allergies, Home Meds and Significant Events have been Reviewed and Verified with Patient/Familyyes Allergy, Intolerance, Adverse Event: Allergies: NKDA: Active Grass: Environment, Unknown, Active Electronic Signatures: Belinda Noel (SIVAN) (Signed 17-Jan-2020 06:22) Authored: Profile, Additional Information Last Updated: 17-Jan-2020 06:22 by Belinda Noel) [facility] Preop Checkliston 01-17-2020 Preop Checklist Preop Checklist: Preop Checklist: Arrival [id number] Arrival Time05:54 Procedure Typeright hemithyroidectomy Temperature C36.6 degrees C Temperature F97.8 degrees F Heart Rate78 beats per minute Respiratory Rate16 breath per minute Blood Pressure Qwoxhjjm155 mm/Hg Blood Pressure Cpjiipbcq16 mm/Hg NPO [id number] 22:30 ID Band Onyes Allergy Bandno known allergies Consent Signedyes H&P Completeyes Anesthesia Assessment Completedpending EKG Performedsee results tab Chest X-Ray Performedsee results tab HCG Urine TestN/A Chlorhexadine Bath Givennot applicable Nasal Antiseptic Appliednot applicable Hair Washednot applicable Soap and water bath with hair shampoo the night before surgerynot applicable Hat placed on infant prior to transportnot applicable SCD's Appliedsent to OR NATASHA Hose Appliednot ordered Denturesnot applicable Prostheticsnot applicable Valuables Securedsent with family Glasses / Contactsnot applicable OtherALL BELONGINGS 2 PATIENT BAGS AND ONE CPAP TO PATIENTS PARENTS Cardiovascular Assessment: Extremitieswarm, well perfused Respiratory Assessment: Respirationsunlabored regular Neurological Assessment: Level of Consciousnessalert, oriented Mobilitymoves all extremities Able to Express Selfyes Age Appropriateyes Emotional Statuscalm Preop Education: Surgical Site Infection Preventionyes Pain Scales and Managementyes Language / Communication: Language / CommunicationEnglish Electronic Signatures: Belinda Noel (RN) (Signed 17-Jan-2020 06:24) Authored: Preop Checklist Last Updated: 17-Jan-2020 06:24 by Belinda Noel (RN) Normal [facility] Surgical Pathology Depar tmenton 01-17-2020 [facility] Surgical Pathology Department Name NAVNEET RIVERA Pathologist: DOROTA KANG ASA, MD, PhD Date of Procedure: 01/17/2020 Date Received: 01/17/2020 Date Reported 01/20/2020 Submitting Physician: VONNIE HAMPTON M.D. Location: OR Other External # FINAL DIAGNOSIS A. 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 Clinical History: Thyroid nodule; see orientation Specimens Submitted As: A: RIGHT THYROID Gross Description: A: Received in formalin, labeled with the patient's name and hospital number, is an oriented right hemithyroidectomy specimen with isthmus and pyramidal lobe and a stitch marking the superior lobe. The specimen weighs 21.8 gm amd measures 5.0 x 4.5 x 1.5 cm. The outer surface is lopez red and smooth; parathyroids are not identified grossly. The specimen is inked in the following manner: the posterior lobe is inked black, the anterior lobe blue, and the possible isthmus inked yellow. The specimen is serially sectioned from superior to inferior. The cut surface is red brown. The mid to lower lobe contains a well circumscribed nodule that measures 2.5 x 2.0 x 1.3 cm and contains colloid material and focal hemorrhage. Photographs are taken and labeled. The specimen is entirely submitted in 15 cassettes. YYZ Summary of Cassettes: Specimen Label Site A 1-14 right lobe submitted from superior to inferior (nodule in 5,7,9,11) 15 pyramidal lobe yyz/01/17/2020 Normal [facility] Comment on above: Performed By: #### U HCS #### [facility] Surgical Pathology Department [address] [facility] [address] HEMOGLOBIN A1Con 01-05-2020 HbA1c (Bld) [Mass fraction] 272 MG/DL Normal [facility] Comment on above: Performed By: #### H BA1E #### [facility] [address] [place] [address] HbA1c (Bld) [Mass fraction] 11.1 % Normal [facility] Comment on above: Result Comment: Diag nosis of Diabetes-Adults Non-Diabetic: < or = 5.6% Increased risk for developing diabetes: 5.7-6.4% Diagnostic of diabetes: > or = 6.5% . Monitoring of Diabetes Age (y) Therapeutic Goal (%) Adults: >18 <7.0 Pediatrics: 13-18 <7.5 7-12 <8.0 0- 6 7.5-8.5 [place] [employer]. Diabetes Care 33(S1), Nov 2009. Performed By: #### H BA1E #### [facility] [address] [place] [address] BASIC METABOLIC PANELon 12-12 Anion gap [Moles/Vol] 17 mmol/L Normal 10 - 20 [facility] Comment on above: Performed By: #### B MP #### [facility] [address] [place] [address] Calcium [Mass/Vol] 10.2 mg/dL Normal 8.6 - 10.6 [facility] Comment on above: Performed By: #### B MP #### [facility] [address] [place] [address] Chloride [Moles/Vol] 102 mmol/L Normal 98 - 107 [facility] Comment on above: Performed By: #### B MP #### [facility] [address] [place] [address] Creatinine [Mass/Vol] 0.75 mg/dL Normal 0.50 - 1.30 [facility] Comment on above: Performed By: #### B MP #### [facility] [address] [place] [address] GFR- AM. >60 Normal >60 [facility] Comment on above: Result Comment: CALC ULATIONS OF ESTIMATED GFR ARE PERFORMED USING THE MDRD STUDY EQUATION FOR THE IDMS-TRACEABLE CREATININE METHODS. CLIN CHEM 2007;53:766-72 Performed By: #### B MP #### [facility] [address] [place] [address] GFR-NON AM. >60 Normal >60 [facility] Comment on above: Performed By: #### B MP #### [facility] [address] [place] [address] Glucose [Mass/Vol] 227 mg/dL High 74 - 99 [facility] Comment on above: Performed By: #### B MP #### [facility] [address] [place] [address] HCO3 (Bld) [Moles/Vol] 24 mmol/L Normal 21 - 32 [facility] Comment on above: Performed By: #### B MP #### [facility] [address] [place] [address] Potassium [Moles/Vol] 3.8 mmol/L Normal 3.5 - 5.3 [facility] Comment on above: Performed By: #### B MP #### [facility] [address] [place] [address] Sodium [Moles/Vol] 139 mmol/L Normal 136 - 145 [facility] Comment on above: Performed By: #### B MP #### [facility] [address] [place] [address] Urea nitrogen [Mass/Vol] 21 mg/dL Normal 6 - 23 [facility] Comment on above: Performed By: #### B MP #### [facility] [address] [place] [address] CBCon 01-04-2020 Erythrocyte distribution width (RBC) [Ratio] 12.2 % Normal 11.5 - 14.5 [facility] Comment on above: Performed By: #### C BC #### [facility] [address] [place] [address] Hematocrit (Bld) [Volume fraction] 44.7 % Normal 41.0 - 52.0 [facility] Comment on above: Performed By: #### C BC #### [facility] [address] [place] [address] Hemoglobin (Bld) [Mass/Vol] 14.9 g/dL Normal 13.5 - 17.5 [facility] Comment on above: Performed By: #### C BC #### [facility] [address] [place] [address] MCHC (RBC) [Mass/Vol] 33.3 g/dL Normal 32.0 - 36.0 [facility] Comment on above: Performed By: #### C BC #### [facility] [address] [place] [address] MCV (RBC) [Entitic vol] 88 fL Normal 80 - 100 [facility] Comment on above: Performed By: #### C BC #### [place] [address] [place] [address] Nucleated RBC/100 WBC (Bld) [Ratio] 0.0 /100 WBC Normal 0.0-0.0 [facility] Comment on above: Performed By: #### C BC #### [facility] [address] [place] [address] Platelets (Bld) [#/Vol] 192 10*3/uL Normal 150 - 450 [facility] Comment on above: Performed By: #### C BC #### [facility] [address] [place] [address] RBC (Bld) [#/Vol] 5.08 x10E12/L Normal 4.50 - 5.90 [facility] Comment on above: Performed By: #### C BC #### [facility] [address] [place] [address] WBC (Bld) [#/Vol] 6.1 10*3/uL Normal 4.4 - 11.3 [facility] Comment on above: Performed By: #### C BC #### [facility] [address] [place] [address] TYPE + SCREENon 01-04-2020 ABO TYPE O Normal [facility] Comment on above: Performed By: #### T +S #### [facility] [address] [place] [address] RH TYPE Positive Normal [facility] Comment on above: Performed By: #### T +S #### [facility] [address] [place] [address] Vital Signs Date Time Vital Sign Value Performing Clinician Facility 09-27-2024 14:15-0500 Body mass index (BMI) [Ratio] 41.62 kg/m2 Summer Workman PA Work Phone: [facility] 09-27-2024 14:15-0500 Body temperature 97.5 [degF] Summer Workman PA Work Phone: [facility] 09-27-2024 14:15-0500 Body weight 151.05 kg DotSpotsman PA Work Phone: [facility] 09-27-2024 14:15-0500 Diastolic blood pressure 100 mm[Hg] DotSpotsman PA Work Phone: [facility] 09-27-2024 14:15-0500 Heart rate 85 /min DotSpotsman PA Work Phone: [facility] 09-27-2024 14:15-0500 SaO2% (BldA) [Mass fraction] 99 % DotSpotsman PA Work Phone: [facility] 09-27-2024 14:15-0500 Systolic blood pressure 140 mm[Hg] DotSpotsman PA Work Phone: [facility] 08-06-2024 11:40-0400 Body mass index (BMI) [Ratio] 41.5 kg/m2 [facility] 08-06-2024 11:40-0400 Diastolic blood pressure 79 mm[Hg] [facility] 08-06-2024 11:40-0400 Heart rate 84 /min [facility] 08-06-2024 11:40-0400 Systolic blood pressure 129 mm[Hg] [facility] 08-04-2024 07:20-0400 Body height 185.42 cm [facility] 08-04-2024 07:20-0400 Body weight 142.88 kg [facility] 07-21-2024 10:46-0400 Body height 185.42 cm [facility] 07-21-2024 10:46-0400 Body mass index (BMI) [Ratio] 41.4 kg/m2 [facility] 07-21-2024 10:46-0400 Body weight 142.59 kg [facility] 07-21-2024 10:46-0400 Diastolic blood pressure 100 mm[Hg] [facility] 07-21-2024 10:46-0400 Heart rate 80 /min [facility] 07-21-2024 10:46-0400 Respiratory rate 16 /min [facility] 07-21-2024 10:46-0400 Systolic blood pressure 151 mm[Hg] [facility] 11-20-2022 16:30-0500 Body height 187.96 cm Freddy Encarnacion Other [facility] Other 11-20-2022 16:30-0500 Body mass index (BMI) [Ratio] 43.03 kg/m2 Freddy Encarnacion Other [facility] Other 11-20-2022 16:30-0500 Body weight 152.05 kg Freddy Encarnacion Other [facility] Other 11-20-2022 16:30-0500 Diastolic blood pressure 86 mm[Hg] Freddy Encarnacion Other [facility] Other 11-20-2022 16:30-0500 SaO2% (BldA) [Mass fraction] 97 % Freddy Encarnacion Other [facility] Other 11-20-2022 16:30-0500 Systolic blood pressure 132 mm[Hg] Freddy Encarnacion Other [facility] Other 09-02-2022 16:45-0400 Body height 187.96 cm Freddy Encarnacion Other [facility] Other 09-02-2022 16:45-0400 Body mass index (BMI) [Ratio] 42.24 kg/m2 Freddy Shashank Other [facility] Other 09-02-2022 16:45-0400 Body weight 149.23 kg Freddy Encarnacion Other [facility] Other 09-02-2022 16:45-0400 Diastolic blood pressure 90 mm[Hg] Freddy Shashank Other [facility] Other 09-02-2022 16:45-0400 SaO2% (BldA) [Mass fraction] 97 % Freddy Encarnacion Other [facility] Other 09-02-2022 16:45-0400 Systolic blood pressure 150 mm[Hg] Freddy Shashank Other [facility] Other 08-05-2022 16:30-0400 Body height 187.96 cm Freddy Encarnacion Other [facility] Other 08-05-2022 16:30-0400 Body mass index (BMI) [Ratio] 42.62 kg/m2 Freddy Encarnacion Other [facility] Other 08-05-2022 16:30-0400 Body weight 150.6 kg Freddy Shashank Other [facility] Other 08-05-2022 16:30-0400 Diastolic blood pressure 80 mm[Hg] Freddy Shashank Other [facility] Other 08-05-2022 16:30-0400 SaO2% (BldA) [Mass fraction] 98 % Freddy Encarnacion Other [facility] Other 08-05-2022 16:30-0400 Systolic blood pressure 136 mm[Hg] Freddy Encarnacion Other [facility] Other 07-08-2022 16:30-0400 Body height 187.96 cm Freddy Encarnacion Other [facility] Other 07-08-2022 16:30-0400 Body mass index (BMI) [Ratio] 42.06 kg/m2 Freddy Encarnacion Other [facility] Other 07-08-2022 16:30-0400 Body weight 148.6 kg Freddy Encarnacion Other [facility] Other 07-08-2022 16:30-0400 Diastolic blood pressure 88 mm[Hg] Freddy Encarnacion Other [facility] Other 07-08-2022 16:30-0400 SaO2% (BldA) [Mass fraction] 97 % Freddy Encarnacion Other [facility] Other 07-08-2022 16:30-0400 Systolic blood pressure 140 mm[Hg] Freddy Encarnacion Other [facility] Other 06-10-2022 17:00-0400 Body height 187.96 cm Freddy Encarnacion Other [facility] Other 06-10-2022 17:00-0400 Body mass index (BMI) [Ratio] 42.47 kg/m2 Freddy Encranacion Other [facility] Other 06-10-2022 17:00-0400 Body weight 150.05 kg Freddy Encarnacion Other [facility] Other 06-10-2022 17:00-0400 Diastolic blood pressure 107 mm[Hg] Freddy Encarnacion Other [facility] Other 06-10-2022 17:00-0400 SaO2% (BldA) [Mass fraction] 96 % Freddy Encarnacion Other [facility] Other 06-10-2022 17:00-0400 Systolic blood pressure 176 mm[Hg] Freddy Encarnacion Other [facility] Other 04-24-2020 17:16-0400 BMI (Body Mass Index) 43.68 kg/m2 Vonnie Rezaee GY-Xxybeposwmidhn-Ef idman Work Phone: 04-24-2020 17:16-0400 Body weight 150.19 kg Vonnie Rezaee MG-Otolaryngolog y-Se idman Work Phone: 04-24-2020 17:16-0400 BSA (Body Surface Area) 2.67 m2 Vonnie Rezaee AZ-Kunczhyydczqlf-Vb idman Work Phone: 11-23-2019 16:49-0500 BMI (Body Mass Index) 42.22 kg/m2 Vonnie Rezaee GR-Jpjbayghrkouxo-My [facility] Work Phone: 11-23-2019 16:49-0500 Body weight 145.15 kg Vonnie Rezaee MG-Otolaryngolog y-Vill[place] Work Phone: 11-23-2019 16:49-0500 BP Diastolic 88 mm[Hg] Vonnie Rezaee MG-Otolaryngolog y-Vill[facility] Work Phone: 11-23-2019 16:49-0500 BP Systolic 130 mm[Hg] Vonnie Rezaee MG-Otolaryngolog y-[facility] Work Phone: 11-23-2019 16:49-0500 BSA (Body Surface Area) 2.63 m2 Vonnie Rezaee WN-Ikozuubixiziua-Ao bur[facility] Work Phone: 11-23-2019 16:49-0500 Height 185.42 cm Vonine Rezaee MG-Otolaryngolog y-[facility] Work Phone: 11-23-2019 16:49-0500 Pulse (Heart Rate) 74 /min Vonnie Rezaee MG-Otolaryngo logy-[place] Work Phone: 11-23-2019 16:49-0500 Respiratory Rate 15 /min Vonnie Rezaee MG-Otolaryngolo gy-[place] Work Phone: 11-23-2019 16:49-0500 0 1 Vonnie Rezaee MG-Otolaryngolog y-Vill[place]ran bur[facility] Work Phone: Comment on above: Pain Scale Encounters Encounter Date Encounter Type Care Provider Facility Start: 09-27-2024 End: 09-27-2024 Office outpatient visit 25 minutes Merrick Dial PA Work Phone: [facility] Comment on above: Strain of neck muscl e, initial encounter (Primary Dx); Cervical spondylosis; Primary hypertension (CMS/HCC) Start: 09-27-2024 End: 09-27-2024 ambulatory MERRICK DIAL Not Available Start: 08-06-2024 End: 08-06-2024 ambulatory [facility] Work Phone: Start: 08-06-2024 End: 08-06-2024 Patient encounter procedure [facility] Work Phone: Start: 07-21-2024 End: 07-21-2024 ambulatory [facility] Work Phone: Start: 07-21-2024 End: 07-21-2024 Patient encounter procedure [facility] Work Phone: Start: 11-20-2022 End: 11-20-2022 ambulatory Freddy Shashank Other [facility] Other Start: 11-20-2022 Office outpatient vi sit 25 minutes Freddy Shashank [facility] Start: 10-08-2022 (Procedure) Short Freddy Shashank [facility] Start: 10-08-2022 End: 10-08-2022 ambulatory Freddy Shashank Other [facility] Other Start: 09-09-2022 End: 09-09-2022 ambulatory Freddy S Shashank Facility:[facility] Start: 09-02-2022 End: 09-02-2022 ambulatory Freddy Shashank Other [facility] Other Start: 09-02-2022 Office outpatient vi sit 25 minutes Freddy Shashank [facility] Start: 08-05-2022 End: 08-05-2022 ambulatory Freddy Shashank Other [facility] Other Start: 08-05-2022 Office outpatient vi sit 15 minutes Freddy Shashank [facility] Start: 07-08-2022 End: 07-08-2022 ambulatory Freddy Shashank Other [facility] Other Start: 07-08-2022 Office outpatient vi sit 25 minutes Freddy Shashank [facility] Start: 06-21-2022 End: 06-21-2022 ambulatory Freddy S Shashank Facility:[facility] Start: 06-21-2022 End: 06-21-2022 Patient encounter procedure DO Johnny Quinonez Work Phone: [facility] Start: 06-20-2022 End: 08-20-2022 ambulatory FREDDY SHASHANK Facility: Start: 06-10-2022 End: 06-10-2022 ambulatory Freddy Encarnacion Other [facility] Other Start: 06-10-2022 Office consultation new/estab patient 60 min Freddy Encarnacion [facility] Start: 11-28-2021 End: 11-29-2021 ambulatory SALLY MEEKS Facility: Start: 04-24-2020 Patient encounter procedure Vonnie Reregis VO-Hztdbmgumsxcem-Dfmyg an Work Phone: Start: 01-28-2020 Patient encounter procedure Vonnie Rezanikunj DL-Hlegdgtmkomtrd-Nqydd an Work Phone: Start: 01-24-2020 Patient encounter procedure Vonnie Rezaee EF-Tjtcpqqswlexcx-Qcndx an Work Phone: Start: 01-04-2020 Patient encounter procedure Vonnie Rezanikunj FD-Clyxiousbjvgcn-Zmfit an Work Phone: Start: 11-23-2019 Patient encounter procedure Vonnie Rezanikunj TF-Untxojkrsoukjp-Kytdd ban Work Phone: Start: 06-30-2018 Patient encounter procedure Vonnie Rezaee HL-Eccvkldidoxrro-Iltng ban Work Phone: Procedures Date Procedure Procedure Detail Performing Clinician Start: 06-21-2022 Radiography of thora cic spine DO [employer] Work Phone: Start: 06-21-2022 X-ray of cervical spine DO Johnny Ball Work Phone: Start: 01-28-2020 Follow-up visit Start: 01-24-2020 Follow-up visit Start: 01-05-2020 Follow-up visit Start: 01-04-2020 Antibody screen Comment on above: Performed By: #### T +S #### [facility] [address] [place] [address] Start: 11-25-2019 Ultrasound Thyroid Vonnie Lambregis Start: 11-23-2019 Follow-up visit Start: 11-23-2019 [place] FNA Biopsy Includ ing Ultrasound Guidance Ea Add Lesion Vonnie Rezaee History of Radical N sara Dissection Vonnie Rezaee Plan of Treatment Date Care Activity Detail Author Start: 07-11-2024 Influenza vaccination Influenz a Vaccine (#1) [facility] Start: 11-25-2019 Ultrasound Thyroid MG-O tolaryngologySparkle lorenz Work Phone: Start: 11-23-2019 US FNA Biopsy Including Ultrasound Guidance Ea Add Lesion CQ-Objvvwzubwtfag-Fj [facility] Work Phone: Start: 1975 Screening for malignant neoplasm of colon [facility] Patient Education Low back pain in adults [facility] Work Phone: XR Lumbar spine Views [facility] NEGATED: Highlighted row has been ruled out! Planned Goals not documented NQ-Xxksbtnhiztrvr-Kg [facility] Work Phone: Payers Date Payer Category Payer Self-pay [id number] 2017 [employer] [facility] [employer] [id number] 1977 Unknown [id number] 1977 Unknown [id number] 1977 Unknown [id number] 1959 [employer] [place] [employer] [facility] [id number] Unknown [id number] Unknown [id number] Social History Date Type Detail Facility Assertion Tobacco smoking consumption unknown (finding) [place]coq[facility]-Xpxxld an Work Phone: Start: 09-27-2024 Sex Assigned At N [facility] [employer] Other Start: 04-22-2018 Tobacco smoking status [facility] Smoker (finding) [facility] Start: 1975 Sex Assigned At Male F [facility] Start: 07-28-2023 Tobacco smoking status [facility] Smokes tobacco daily [facility] History of tobacco use Cigarette Smoker [facility] Start: 07-28-2023 Tobacco use and exposure Smokeless tobacco non-user [facility] Start: 09-27-2024 Alcoholic beverage intake Lifetime non-drinker (finding) [facility] Start: 09-27-2024 History of Social function [facility] Start: 08-16-2023 Alcohol Comment caffeine: 2-3 cups per day [facility] Start: 1975 Sex assigned at Not on file [facility] Functional Status Date Assessment Result Facility NEGATED: Highlighted row Functional performance Functional status health issues are not documented Disease [facility] Work Phone: Mental Status Date Assessment Result Facility NEGATED: Highlighted row Cognitive function [Interpretation] Cognitive status health issues are not documented Disease NM-Xkroofjbfaxvcy[facility] Work Phone: Clinical Notes 06-10-2022 to 09-27-2024 SIMRAN Baugh - 09/27/2024 2:10 PM EST Note Date & Type Note Facility 09-27-2024 History of Presen t illness Narrative HPI: Historian of HPI: patient Navneet Rivera is a 49 y.o. male who presents today to the Urgent Care with the following complaints and denials due upper right-sided neck which has been present for 5 day(s). Pt states I have history of neck surgery, I am having nerve pain from the back of my neck to my right shoulder blade and down my arm. I can't see my family doc for a week. 02/17 pain. Pt has tried taking his tizanidine with no relief. He reports right sided neck pain with radiation down into right arm, admits decreased AROM right shoulder and pain with certain movements of right upper extremity/neck. Denies chest pain, constant tingling/numbness RUE, dropping objects RUE. C/O Denies Symptom Comments [] [x] swelling [] [x] ecchymosis [] [x] erythema [x] [] tingling Right arm to fingers [x] [] numbness Right arm to fingers [x] [] Pain radiation Neck to right shoulder down to fingers [x] [] Weakness [x] [] Decreased ROM [] [x] Trauma Additional Comments: pt has taken tylenol OTC medication without relief Pt admits to cold application to the affected area No Known Allergies Current Outpatient Medications Medication Instructions ibuprofen 800 mg, Oral, Every 8 hours PRN lisinopril 20 MG tablet Daily metFORMIN (Glucophage) 1000 MG tablet Every 24 hours tiZANidine (Zanaflex) 4 MG tablet Daily at bedtime Visit Vitals BP (!) 140/100 Pulse 85 Temp 97.5 F (Temporal) Wt 333 lb SpO2 99% BMI 41.62 kg/m Smoking Status Every Day BSA 2.83 m ROS: A complete system ROS was performed and negative aside from the pertinent positives noted in the HPI and PE. Physical Exam General Examination: alert, oriented, normal affect, well-appearing, in no acute distress, well developed, well nourished. Head: normocephalic, atraumatic Spine: very limited AROM cervical spine, full AROM right shoulder but pain above 90 degrees on flexion and abduction, strength 5/5. Stick Puller strength strong symmetrically. Neuro: light touch bilateral UE intact Vasc: cap refill < 2 seconds right UE Heart: regular rate and rhythm, S1, S2 normal Lungs: clear to auscultation bilaterally. No wheezes, rales, rhonchi. Extremities: no edema, no cyanosis Psych: alert, oriented, cognitive function intact, cooperative with exam. Assessment/Plan 1. Strain of neck muscle, initial encounter (Primary) Discussed diagnosis and management options, he reports he saw his pcp for this and had Xrs about a month ago, declines repeat imaging today. Ds neck pain likely secondary to his known cervical spondylosis, he underwent PT for some left sided neck pain which is gone for now, reports it is all on the right today. Reports hx of this and went to pain management Dr. Encarnacion in the past for this. Advised rest, warm compresses 20 min on/off. Prefer to start oral steroids, he reports he is type 2 DM but has not had A1c checked in maybe a year, does not check his sugar at home, I offered him and encouraged an A1c but he declined, prefers to use NSAIDs. Will start nsaids, he uses tizanidine regularly, has at home to be used as needed. I did attempt to look up recent blood work in [facility] but none was available. Advised to follow-up with PCP in 5-7 days. Advised new, worsening, or persistent symptoms to return for immediate re-evaluation. Patient voiced understanding and agreement with the plan. All questions/concerns addressed. - ibuprofen 800 MG tablet; Take 1 tablet (800 mg) by mouth every 8 (eight) hours if needed for mild pain for up to 7 days Dispense: 21 tablet; Refill: 0 2. Cervical spondylosis Reviewed, pt admits hx of this. 3. Primary hypertension ([facility]) BP elevated at 140/100, he has not taken his lisinopril in a few days, recommended he re-start. Denies any chest pain, headache, vision changes. Advised must follow up with pcp on this. documented in this encounter [facility] 11-20-2022 Evaluation note Encounter Date Diagnosis Assessment Notes Nov, Thoracic spondylosis (ICD-10 - M47.814) 47 year old male here for follow up status post thoracic facet medial branch radiofrequency on the right side at T2, T3, T4, and T5 under fluoroscopic guidance. Patient reports 85-90% pain relief following procedure. He states he has only had right sided mid back pain 3 times since his last office visit. He voices complaints of left sided mid back pain. He feels overall his pain is manageable. Different treatment options were discussed in detail with the patient, overall he appears to be doing well and does not require further treatment at this time. He is encouraged to call the office if his symptoms worsen. In the meantime, he can use Diclofenac geland Lidocaine cream OTC and alternate these to painful areas as needed. He can also use the TENS unit as needed for pain. Nov, Cervical spondylosis (ICD-10 - M47.812) If his pain persists or worsens, we can consider repeating cervical facet RFA in the future, if applicable. Nov, Other chronic pain (ICD-10 - G89.29) Patient is encouraged to call the office if his symptoms worsen. [facility] Other 10-24-2022 Evaluation note* Encounter Date Diagnosis Assessment Notes Treatment Notes Treatment Clinical Notes Aug, Cervical spondylosis (ICD-10 - M47.812) 47 year old male here for follow up to discuss chronic pain. He is status post right cervical and interscapular trigger point approx. 4 weeks ago. He feels this provided 50% relief of pain. He continues to complain of residual neck and interscapular pain. He also notes radicular symptoms to the right upper extremity to the hand. He states he attended 18 sessions of physical therapy and continues a HEP. Different treatment options were discussed in detail with the patient, and I will order an updated RI of the cervical spine at this time to further evaluate his pain. In the meantime, I will prescribe a TENS unit to apply to painful areas as needed. Aug, Myofascial muscle pain (ICD-10 - M79.18) Patient reports 50% pain relief following trigger injection Aug, Other chronic pain (ICD-10 - G89.29) Follow up in 4 weeks. [facility]it Other 09-26-2022 Evaluation note* Encounter Date Diagnosis Assessment Notes Treatment Notes Treatment Clinical Notes Jul, Cervical spondylosis (ICD-10 - M47.812) 47 year old male here for follow up to discuss chronic pain. He voices complaints of interscapular pain. He feels pain can negatively impact his daily activities. He continues alternating Tylenol with Ibuprofen which he feels provides an element of pain relief. Anatomy of spine as well as different treatment options were discussed in detail with patient in regards to patients condition. I recommend we proceed with a trigger point injection to the right cervical and interscapular muscles under ultrasound guidance as previously discussed. Risks and benefits of procedure explained to patient; patient verbalizes understanding. Jul, Myofascial muscle pain (ICD-10 - M79.18) Proceed with trigger point injection to right cervical and interscapular muscles under ultrasound guidance as previously discussed. Risks and benefits of procedure explained to patient; patient verbalizes understanding. Jul, Thoracic spondylosis (ICD-10 - M47.814) Continue with current treatment plan. Jul, Other chronic pain (ICD-10 - G89.29) Follow up in 4 weeks. Nautit Other 08-29-2022 Evaluation note* Encounter Date Diagnosis Assessment Notes Treatment Notes Treatment Clinical Notes Jun, Cervical spondylosis (ICD-10 - M47.812) 47 year old male here for follow up for chronic pain. He voices complaints of mid back and neck pain with radiation down the right arm to the elbow. He is currently attending physical therapy, he states he has attended 5 sessions thus far. Anatomy of spine as well as different treatment options were discussed in detail with patient in regards to patients condition. I recommend he continue with physical therapy at this time. If his pain persists or worsens, I will order advanced imaging of the cervical spine to further evaluate his pain. Jun, Myofascial muscle pain (ICD-10 - M79.18) If his pain persists or worsens, we can consider trigger point injections to the right interscapular muscles in the future. Jun, Thoracic spondylosis (ICD-10 - M47.814) XR of thoracic spine shows no significant degenerative changes. Continue with current treatment plan. Jun, Other chronic pain (ICD-10 - G89.29) Stable, follow up in 2-4 weeks. Nautit Other 08-01-2022 Evaluation note* Encounter Date Diagnosis Assessment Notes Treatment Notes Treatment Clinical Notes Jun, Thoracic spondylosis (ICD-10 - M47.814) He is status post thoracic facet medial branch RFA in 2018 which provided him with 80-90% relief of his mid back pain until recently. Consider repeat thoracic facet medial branch RFA in the future. Jun, Cervical spondylosis (ICD-10 - M47.812) 46 year old male presents with complaints of neck, right shoulder and interscapular pain. He also complains of mid back pain. He was last seen in March 2019. He states pain has been increasingly worse over the last 4 months. I recommend he start physical therapy for his neck and mid back pain. In the meantime I will order updated imaging of the cervical and thoracic spine to further evaluate his pain. Jun, Other chronic pain (ICD-10 - G89.29) Stable, follow up in 2-4 weeks. Jun, Other Medical deci shanda making shows a new problem to me with further workup planned or suggested with the potential for extensive treatment options that were considered with the most applicable given this patient's situation as noted above. Treatment options considered include a combination of physical therapy approaches, pharmacologic management, and interventional procedures. Those most applicable to the patient were discussed at this time. Risk of complications and/or morbidity and mortality is high given that acute and chronic pain poses a threat to life and bodily function if undertreated, poorly treated or with failure to maintain adequate treatment and timely followup. Given the serious and fluctuating nature of pain with extensive consideration for whenever pain changes, there always remains the possibility of prolonged functional impairment requiring constant patient reassessment and high-level medical decision making. The amount and complexity of data reviewed is high given that patient labs, radiology reports, and other test were obtained, reviewed and summarized as applicable from the physician portal and/or outside medical records. Pertinent positive and negative findings were considered in medical decision-making. [facility] [employer] Other Evaluation noteNo assessment information available [facility] Work Phone: Evaluation noteNo InformationNortChest[facility] [employer] Other Evaluation note* Diagnosis Onset Date Resolution Status Cervical spondylosis acute Hypertension acute Low back pain acute Type 2 diabetes mellitus with hyperglycemia [facility] Work Phone: Evaluation note* Diagnosis Onset Date Resolution Status Cervical spondylosis acute Hypertension acute Low back pain acute Type 2 diabetes mellitus with hyperglycemia acute Cervical spondylosis acute Hypertension acute Low back pain acute Type 2 diabetes mellitus with hyperglycemia acute [facility] Work Phone: Evaluation note* Diagnosis Strain of neck muscle, initial encounter- Primary Cervical spondylosis Cervical spondylosis without myelopathy Primary hypertension (CMS/HCC) Unspecified essential hypertension documented in this encounter [facility] N[facility]ative - Reported* Type Description Date Medical History Hx of cervical surgery Medical History Degenerative disc disease, cervi slime Medical History Other spondylosis, cervical osbaldo on Medical History History of cervical spinal surge ry Medical History Lumbosacral spondylosis Medical History Thoracic spondylosis Medical History Migraine Medical History Occipital neuralgia Medical History Other chronic pain Medical History Essential (primary) hypertension Surgical History 2 cervical surgeries Surgical History thryoid biopsy Hospitalization History see above Nautit Other Reason for visit Narrative6 WEEK FOLLOW [facility] [employer] Other Summary Purpose Family History Mother Name Dates Details Family history of diabetes m ellitus(V18.0, Z83.3) Status:Active Family history of hypertensi on(V17.49, Z82.49) Status:Active Family history of arthritis( V17.7, Z82.61) Status:Active Father Name Dates Details Family history of diabetes m ellitus(V18.0, Z83.3) Status:Active Family history of hypertensi on(V17.49, Z82.49) Status:Active Family history of arthritis( V17.7, Z82.61) Status:Active Mother Name Dates Details Family history of diabetes m ellitus(V18.0, Z83.3) Status:Active Family history of hypertensi on(V17.49, Z82.49) Status:Active Family history of arthritis( V17.7, Z82.61) Status:Active Father Name Dates Details Family history of diabetes m ellitus(V18.0, Z83.3) Status:Active Family history of hypertensi on(V17.49, Z82.49) Status:Active Family history of arthritis( V17.7, Z82.61) Status:Active Relationship Condition Age at Onset Recorded Date/T bandar father Hypertension Unknown Diabetes mellitus Unknown Not Specified Hypertension Unknown brother Hypertension Unknown Relationship Condition Age at Onset Recorded Date/T bandar father Hypertension Unknown Diabetes mellitus Unknown mother Hypertension Unknown brother Hypertension Unknown father Diabetes mellitus Unknown Hypertension Unknown mother Diabetes mellitus Unknown Advance Directives Advance Directive Response Recorded Date/ Time Advance Directives No August 13, 2017 4:36pm Procedure Findings Note Post Operative Note: PreOp D iagnosis: Right thyroid nodules Post-Procedure Diagnosis: Right thyroid nodules Procedure: 1. Right hemithyroidectomy 2. Recurrent laryngeal nerve monitoring 3. Anterior neck scar revision, 6cm Surgeon: Cassidy Resident/Fellow/Other Ultrasonic Tester: Amita Anesthesia: general Estimated Blood Loss (mL): <10 Specimen: yes Complications: none Findings: see op note Patient Returned To/Condition: PACU in stable condition Operative Report Dictated: Dictation: not applicable - note contains Operative Report Operative Report: Indications: Navneet Rivera is a 44yo male who was seen in clinic on 01/04/20 with concern for right thyroid nodules. These were initially identified incidentally on a carotid ultrasound. He subsequently had multiple FNAs that were non-diagnostic. Patient desired surgical excision for definitive diagnosis and treatment. Therefore, discussion was held in clinic regarding proceeding to the OR for the above procedures. After discussing all risks, benefi (more content not included)... Chief Complaint and Reason for Visit Chief Complaint M47.814 M47.812 Chief Complaint Hurt Lower Back Reason for Visit Cervical spondylosis Hypertension Low back pain Type 2 diabetes mellitus with hyperglycemia Chief Complaint Hurt Lower Back 2 week follow up Reason for Visit Cervical spondylosis Hypertension Low back pain Type 2 diabetes mellitus with hyperglycemia Cervical spondylosis Hypertension Low back pain Type 2 diabetes mellitus with hyperglycemia Additional Source Comments (unrecognized sect ion and content) No Status Records FoundNo Status Records FoundNo Status Records FoundNo Status Records FoundNo Status Records Found INFORMATION SOURCE (unrecogn ized section and content) DATE CREATED AUTHOR 01/28/2020 [employer] DATE CREATED AUTHOR AUTHOR'S ORGANIZ ATION 04/26/2020 [facility] DATE CREATED AUTHOR AUTHOR'S ORGANIZ ATION 08/21/[address] [facility] DATE CREATED AUTHOR AUTHOR'S ORGANIZ ATION 09/21/2022 [facility] DATE CREATED AUTHOR AUTHOR'S ORGANIZ ATION 09/29/2024 [facility] EPIC REASON FOR VISIT (unrecogniz ed section and content) PREVIOUS PATIENT REFERRED BY DR QUINONEZ TO RE-ESTABLISH FOR CERVICAL SPONDYLOSISreview imaging and physical therapyf/u after PT, consider trigger point injection to right interscpularF/U AFTER TRIGGER POINT INJECTIONSRIGHT T2-3, T3-4, T4-5 THORACIC FACET RFA Care Teams (unrecognized sec tion and content) Team Status: Inactive Member Role Status Dates Johnny Quinonez , Primary Care Provider Active Freddy Encarnacion MD Attending Provider Active Team Status: Active Member Role Status Dates Johnny Quinonez , Primary Care Provider Active Team Status: Inactive Member Role Status Dates Johnny Quinonez , Primary Care Provide r, Attending Provider Active Start: July 21, 2024 End: July 21, 2024 Team Status: Inactive Member Role Status Dates Johnny Quinonez , Primary Care Provide r, Attending Provider Active Start: August 06, 2024 End: August 06, 2024 [employer] Relationship Specialty Start Date End Date Johnny Quinonez MD [address] [place] [address] PCP - General Internal Medicine 07/28/23 Trung Ellington DO [address] [facility] [address] [place] [address] [facility] Goals (unrecognized section and content) Goals may be documented in a n alternate section FOR RECORDS PERTAINING TO PATIENTS WHO ARE OR HAVE BEEN ENROLLED IN A CHEMICAL DEPENDENCY/SUBSTANCEABUSE PROGRAM, SOME INFORMATION MAY BE OMITTED. This clinical summary was aggregated from multiple sources. Caution should be exercised in using it in the provision of clinical care. This summary normalizes information from multiple sources, and as a consequence, information in this document may materially change the coding, format and clinical context of patient data. In addition, data may be omitted in some cases. CLINICAL DECISIONS SHOULD BE BASED ON THE PRIMARY CLINICAL RECORDS. [employer] provides no warranty or guarantee of the accuracy or completeness of information in this document.
[2025-01-11] MEDS: 0.9 % SODIUM CHLORIDE 1,000 ML 999 ML IV (11:22)
[2025-01-11 11:30] LABS: Basophils Percent Auto 0.4 % (0.2-2.0); Eosinophils Absolute Auto 0.1 10^3/uL (0.0-0.7); Hematocrit 43.7 % (42.0-54.0); Hemoglobin 15.1 g/dL (14.0-18.0); Immature Granulocytes Abs Auto 0.03 10^3/uL (0.00-0.03); Immature Granulocytes Pct Auto 0.4 % (0.0-0.5); Lymphocytes Absolute Auto 1.4 10^3/uL (1.2-3.8); Lymphocytes Percent Auto 17.3 % (20.5-60.0); Mean Corpuscular HGB Conc 34.6 g/dL (29.9-35.2); Mean Corpuscular Hemoglobin 30.3 pg (25.9-34.0); Mean Corpuscular Volume 87.6 fL (80.0-94.0); Mean Platelet Volume 10.3 fL (9.5-13.5); Monocytes Absolute Auto 0.6 10^3/uL (0.3-0.8); Monocytes Percent Auto 7.3 % (1.7-12.0); Neutrophils Absolute Auto 6.1 10^3/uL (1.4-6.5); Neutrophils Percent Auto 73.6 % (43.0-75.0); Platelet Count 189 10^3/uL (150-450); Red Blood Count 4.99 10^6/uL (4.70-6.10); Red Cell Distribution Width 12.3 % (11.0-15.0); White Blood Count 8.3 10^3/uL (4.0-11.0)
[2025-01-11 11:49] LABS: Alanine Aminotransferase 48 U/L (16-63); Albumin Globulin Ratio 1.4; Albumin Level 3.8 g/dL (3.4-5.0); Alkaline Phosphatase 103 U/L (46-116); Anion Gap 12.2; Aspartate Amino Transferase 23 U/L (15-37); BUN Creatinine Ratio 16.2; Bilirubin Total 0.7 mg/dL (0.2-1.0); Carbon Dioxide 26.1 mmol/L (21.0-32.0); Chloride 104 mmol/L (98-107); Estimated GFR (African America >60 (>=60 mL/min/1.73m^2); Estimated GFR (Non-African Ame >60 (>=60 mL/min/1.73m^2); Globulin 2.7 g/dL; Glucose 245 mg/dL (74-106); Potassium 4.3 mmol/L (3.5-5.1); Sodium 138 mmol/L (136-145); Total Protein 6.5 g/dL (6.4-8.2)
[2025-01-11] MEDS: MORPHINE SULFATE 4 MG/ML VIAL IV ×2 (12:08→14:26)
[2025-01-11] MEDS: 0.9 % SODIUM CHLORIDE 1,000 ML 1000 ML IV (13:21)
[2025-01-11 15:18] LABS: Bilirubin Urine NEGATIVE (NEGATIVE); Blood Urine MODERATE (NEGATIVE); Clarity Urine CLEAR (CLEAR); Color Urine YELLOW (YELLOW); Glucose Urine UA 500 mg/dL (NEGATIVE); Ketones Urine TRACE mg/dL (NEGATIVE); Leukocyte Esterase Urine NEGATIVE (NEGATIVE); Nitrite Urine NEGATIVE (NEGATIVE); Protein Urine TRACE mg/dL (NEG/TRACE); Specific Gravity Urine >=1.030 (1.005-1.025)
[2025-01-11 15:25] LABS: Bacteria Urine TRACE #/HPF (NONE SEEN); Cast Seen? NONE SEEN #/LPF (NONE SEEN); Crystals Seen? None Seen #/HPF (None Seen); Mucus Urine MODERATE (NONE SEEN); Squamous Epithelial Cell Urine FEW #/LPF (NONE/RARE); Urine Culture Indicated NO; WBC Urine 0-2 #/HPF (NONE SEEN)
[2025-01-11 15:40] LABS: Creatine Kinase 148 U/L (39-308)
[2025-01-11 15:58] VITALS: BP 160/100; PULSE 68; O2SAT 98
== END 2025-01-11 16:00 | disposition home or self-care (01) ==
PROVIDERS: Emergency Provider Emergency Medicine; PCP Internal Medicine
DX: N13.2 Hydronephrosis with renal and ureteral calculous obstruction (principal); R11.2 Nausea with vomiting, unspecified; Z87.442 Personal history of urinary calculi; Z79.84 Long term (current) use of oral hypoglycemic drugs; E11.65 Type 2 diabetes mellitus with hyperglycemia; T38.3X6A Underdosing of insulin and oral hypoglycemic [antidiabetic] drugs, initial encounter
CPT/HCPCS: 36415; 51702; 74176; 80053; 81001; 82550; 83690; 85025; 96361; 96374; 96376; 99285; J2270

== ENCOUNTER 2025-01-20 08:36 | Outpatient (OUT) | payer BC, SELFPAY ==
[2025-01-20 09:03] LABS: Creatinine Urine Random 148.04 mg/dL (20.00-300.00); Microalbum Creatinine Ratio Ur 11.4 mg/g (0.0-29.9); Microalbumin Urine Random 1.7 mg/dL (<=30.0)
[2025-01-20 09:07] LABS: Cholesterol 167 mg/dL (<=200); HDL Cholesterol 42 mg/dL (40-60); LDL Cholesterol Calculated 108.8 mg/dL; Triglycerides 81 mg/dL (<=150); VLDL CHOLESTEROL 16.2 mg/dL
[2025-01-20 09:39] LABS: Estimated Average Glucose 235 mg/dL; Glycohemoglobin A1C 9.8 % (4.5-6.2)
== END 2025-01-20 08:37 | disposition home or self-care (01) ==
LOC: LAB 08:36
PROVIDERS: PCP Internal Medicine; Visit Provider Internal Medicine
DX: Z00.00 Encounter for general adult medical examination without abnormal findings (principal)
CPT/HCPCS: 36415; 80061; 82043; 82570; 83036